=== PATIENT | female | born 1985 | race Caucasian/White ===

== ENCOUNTER 2019-09-06 12:33 | Emergency (ER) | payer MEDICAID ==
[~2019-09-06] VITALS: Ht 157.5 cm; Wt 52.3 kg
[2019-09-06 12:43] VITALS: BP 146/96; Ht 157.5 cm; Wt 52.3 kg
[2019-09-06] MEDS ORDERED: COUMADIN5 MG (12:46)
[2019-09-06] MEDS ORDERED: LOPRESSOR25 MG PO (12:46)
[2019-09-06] MEDS ORDERED: SUMATRIPTAN SUC25 MG PO (12:46)
== END 2019-09-06 14:00 | disposition left against medical advice (07) ==
LOC: D.ER 12:33
DX: S09.90XA Unspecified injury of head, initial encounter (principal); X58.XXXA Exposure to other specified factors, initial encounter; Z53.29 Procedure and treatment not carried out because of patient's decision for other reasons